=== PATIENT | male | born 1945 | race Caucasian/White ===

== ENCOUNTER → 2017-02-09 | Outpatient (CLI) | payer OTHER ==
[~2017-02-09] VITALS: Ht 177.8 cm; Wt 99.4 kg
[~2017-02-09] MED LIST: ALPRAZOLAM 0.0.25 MG PO; BYSTOLIC 5 MG5 M1 PO; CRESTOR20 MG PO; ELIQUIS2.5 MG PO; ELIQUIS5 MG PO; FENTANYL PA25 MCG/HR TRANSDERM; FLOMAX0.4 MG PO; HYDROCODON-ACE1 EAC5 PO; IMDUR 30 MG TAB30 M1 PO; K-TAB ER20 MEQ PO; LASIX 80 MG TAB80 MG PO; LEVEMIR SUBQ; LEVOTHYROXIN0.175 MG PO; LISINOPRIL2.5 MG PO; NITROGLYCERIN0.4 MG PO; NORCO 10-325 T1 EACH PO; NOVOLOG100 UNIT/1 SUBQ; PLAVIX 75 MG TA75 M1 PO; RANEXA500 MG PO; XANAX 0.25 MG0.25 MG PO; ZANTAC 150MG T150 MG PO
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
[2017-02-09 14:11] VITALS: BP 123/71
== END | disposition home or self-care (01) ==
LOC: PAIN 07:49
DX: G89.4 Chronic pain syndrome (principal); M54.16 Radiculopathy, lumbar region; E11.40 Type 2 diabetes mellitus with diabetic neuropathy, unspecified; F11.20 Opioid dependence, uncomplicated; F41.8 Other specified anxiety disorders; Z98.890 Other specified postprocedural states; Z87.891 Personal history of nicotine dependence

== ENCOUNTER → 2017-05-14 | Outpatient (CLI) | payer OTHER ==
[~2017-05-14] VITALS: Ht 170.2 cm; Wt 106.5 kg
[~2017-05-14] MED LIST changes: +PERCOCET 10-321 EACH PO
--- NOTE | ~2017-05-14 | HPC ---
[facility] [address] [place] [address] PAIN MANAGEMENT CONSULTATION Name: ANGIEFLOR Room #: REG [facility] MIsmaelR.#: [id number] Admission: 05/14/17 Attend Phys: Grady Small MD Discharge: Date of : 49 Report #: [id number] THIS REPORT FOR: //name// CC: Vance Small DATE OF SERVICE: 05/14/2017 Followup visit for chronic back pain with spondylosis and radiculopathy. This is a patient who has been following the pain clinic since 04/30/2015. At that time, he complained of pain in his back related to diabetes with peripheral neuropathy. He also has spondylitic changes. He has coronary artery disease and significant heart failure. He has been followed by myself as well as his primary physician, Dr. Canales. Although the patient signed an opioid agreement with our clinic, it appears that Dr. Canales has assumed writing all of his medications including the oxycodone. I discussed that with the patient today. His last prescription for the patient was filled just a few days ago and he filled the last fentanyl patch prescribed through our clinic on 05/10/2017. He has enough medication in the next month. In the meantime, he will likely be at [facility] for surgery. He reports that he is on the list for a heart transplant. Obviously, he has significant cardiomyopathy. The details of this problem are unknown to me. He has longstanding diabetes with peripheral neuropathy for which his medications have been helpful. Medications for pain have included through our clinic Duragesic 25 mcg q. 72 hours as well as oxycodone and/or hydrocodone which have been prescribed for breakthrough pain. His last prescription here was for hydrocodone 10/325, #[address] Curt Abrams on 02/06/2017 along with release date prescriptions for 4 and 8 weeks. In drug conflict with our agreement, he has been receiving opioids at the same time from Dr. Canales. I discussed this with him, so he understands the importance of receiving opioids only from one prescribing physician. He will follow up with Dr. Canales for further care. He says Dr. Canales is the house physician at the facility where he lives. PHYSICAL EXAMINATION: He is a bit disheveled. Blood pressure 105/42, heart rate 83, BMI is 36.8. He is walks with sort of a shuffling gait. He has tenderness across his low back. IMPRESSION: [facility] [address] [place] [address] PAIN MANAGEMENT CONSULTATION Name: FLOR ADAMS Room #: REG CLChu Minh.#: [id number] Admission: 05/14/17 Attend Phys: Grady Small MD Discharge: Date of : 49 Report #: [id number] 1. Chronic back pain with degenerative changes. 2. Neuropathic pain, which is probably lumbar radiculopathy along with diabetic polyneuropathy. 3. Cardiomyopathy by history. 4. Management of high risk medications. He has been released from his opioid agreement with our clinic and will follow up with Dr. Canales. By: [id number] Grady Small MD /nt
[2017-05-14 13:32] VITALS: BP 105/42
== END | disposition home or self-care (01) ==
LOC: PAIN 11:14
DX: G89.29 Other chronic pain (principal); E11.42 Type 2 diabetes mellitus with diabetic polyneuropathy; I25.10 Atherosclerotic heart disease of native coronary artery without angina pectoris; I50.9 Heart failure, unspecified; I42.9 Cardiomyopathy, unspecified; Z87.891 Personal history of nicotine dependence